=== PATIENT | female | born 1975 | race Caucasian/White ===

== ENCOUNTER 2017-02-13 14:29 | Inpatient (IN) | payer OTHER ==
[~2017-02-13] VITALS: Ht 170.2 cm; Wt 49.9 kg
[2017-02-13] VITALS (14 sets, daily range): BP systolic 116–150; BP diastolic 68–102; PULSE 70–112; RESP 12–19; O2SAT 98–100
--- NOTE | 2017-02-13 07:12 | PCM.HPANE ---
Patient Data Surgeon Admitting Provider: Attending Provider:Thai Figueroa MD Primary Care Physician:Nadir Crews ND Other Provider:Saad Daniels Anesthesia Reason for Visit Jaundice Ht/WT & BMI Body Mass Index Allergies Coded Allergies: No Known Allergies (Unverified , 03/09/16) Past Anesthesia History Anesthesia History: Denies:: Abnormal Airway, Anesthesia Reactions, Difficult Intubation, Fam Anesthesia Reaction, Fam Malignant Hypertherm, Malignant Hyperthermia Diabetes History Hx Diabetes?: No MRSA MRSA: No Medications Reported Medications Prochlorperazine Maleate (Compazine)10 Mg Zebzam03 Mg PO qhrs prn 02/12/17 Ondansetron ODT (Zofran ODT)8 Mg Tablet8 Mg PO q8hrs prn PRN For Nausea 02/12/17 Oxycodone ER (Oxycontin)10 Mg Tab.er.12h10 Mg PO prn 01/21/17 oxyCODONE 5 Mg Tablet5-10 Mg PO Q4H PRN For Pain Ref 0 04/10/16 [Med Cannabis] No Conflict Check Prn 03/27/16 History History of ENT Problems?: No HEENT History: Denies:: Abnormal Airway Difficult Intubation Dysphagia Hearing Problem Hx of Heart Problems?: No Cardiovascular History: Denies:: AICD Atrial Fibrillation Chest Pain Hypertension Pacemaker Valvular Heart Disease Hx of Respiratory Problem?: Yes Respiratory History: Positive for:: Cough (CHRONIC DRY COUGH) Denies:: Asthma COPD Hemoptysis Pneumonia Tuberculosis Hx Neurologic Problems?: No Neurological History: Denies:: CVA Dementia Hx of GI Problems?: Yes Gastrointestinal History: Denies:: Cirrhosis Diverticulitis Gastroesphageal Reflux Hiatal Hernia Rectal Bleeding Hx of Problems?: No Female Hx: Denies:: Currently Skin History: Denies:: History Skin Disorders? Hx Musculoskeletal Problems?: No Musculoskeletal History: Denies:: Joint Replacement Psycho Social History: Denies:: Anxiety Hx Depression Hx Surgeries?: Yes (hemorrhoids, port) Hx Any Other Health Problems?: Yes Other History: Positive for:: Cancer (liver ca- current problem) History Blood Transfusions: Denies:: Blood Transfusions Hx Diabetes: No Hx Alcohol Use: NoHx Substance Use: No Smoking Status: Never Smoker Stop/Bang TAMIKO Risk Assessment: Low Risk, <3 Yes Risk Assessment Category Category 1A: Patient has history of documented sleep apnea, and HAS NOT received any narcotic, sedative or anesthesia administration during this stay. Category 1B: Patient has history of documented sleep apnea, and HAS received any narcotic , sedative or anesthesia administration during this stay Category 2: Patient has SUSPECTED Obstructive Sleep Apnea, and HAS received any narcotic , sedative or anesthesia administration during this stay. Category 3: Patient has SUSPECTED Obstructive Sleep Apnea and HAS NOT received narcotic, sedative or anesthesia administration during this stay. Category 4: Outpatient in Procedural Areas with known sleep apnea or who screen positive for High Risk via the STOP/BANG questionnaire. Exam Exam General Appearance: Alert, Oriented X3, Cooperative, No Acute Distress HEENT/AIRWAY: MP 2 Lungs: Clear to Auscultation, Normal Air Movement Heart: Exam Unremarkable, Regular Rate/Rhythm, No Murmurs/Rubs/Gallops Plan Impression Patient chart reviewed, patient interviewed and anesthestic plan with risks, benefits, and alternatives discussed, and informed consent obtained. NPO Status: clears to 0800 ASA Physical Status: ASA2 Mod Systemic Disease Anesthetic Plan: GA Bene/Risks/Altern/Consents: Yes HP Complete Prior to Induction: Yes Demar Veloz MD Feb 13, 2017 07:12
[~2017-02-13 14:29] MED LIST: 0.9% Sodium Chloride 1,000 ML IV PRN; ONDA8TAB7 PO; OXYC10TA69 PO; OXYC5TAB72 PO; PROC-4 PO; Sodium Chloride LOK Flush 10 mL Syringe IV PRN; [UNRECOGNIZED DRUG - OTHER] PO; fentaNYL-PF 50 mCg/mL 2 mL Inj IVPUSH PRN
[2017-02-13] MEDS ORDERED: Succinylcholine Chloride 20 mg/mL 5 mL Inj ONE (14:44)
[2017-02-13] MEDS ORDERED: Propofol 10,000 mCg/mL 20 mL Inj ONE (14:44)
[2017-02-13] MEDS ORDERED: Ondansetron 2 mg/mL 2 mL Inj ONE (14:44)
[2017-02-13] MEDS ORDERED: Dexamethasone 4 mg/mL Inj ONE (14:44)
[2017-02-13] MEDS ORDERED: fentaNYL-PF 50 mCg/mL 2 mL Inj ONE (14:44)
[2017-02-13 15:43] LABS: INR 1.03 ratio
[2017-02-13] MEDS ORDERED: Lactated Ringer's 500 ML IV PRN (18:14)
--- NOTE | 2017-02-13 18:14 | PCM.ANEP1 ---
Post Anesthesia Phase 1 PACU Phase 1 Assessment Vital Signs Vital Signs Date Time Temp Pulse Resp B/P Pulse Ox O2 Delivery O2 Flow Rate FiO2 02/13/17 15:51 112 19 116/83 98 Room Air Anesthetic Administered: GA Level of Alertness: Awake, talking Pain: No Nausea or Vomiting: No Oxygen Delivery: Simple Mask Lungs: Clear to Auscultation, Normal Air Movement Demar Veloz MD Feb 13, 2017 18:14
[2017-02-13] MEDS ORDERED: Phenylephrine 10,000 mCg/mL Inj IVPUSH PRN (18:15)
[2017-02-13] MEDS ORDERED: Dexamethasone 4 mg/mL Inj IVPUSH PRN (18:15)
[2017-02-13] MEDS ORDERED: Ciprofloxacin Inj 400 MG in IV Premix 1 EACH IV ONE (18:15)
[2017-02-13] MEDS ORDERED: EPHEDrine Sulfate 50 mg/mL Inj IVPUSH PRN (18:15)
[2017-02-13] MEDS ORDERED: MetoCLOpramide 5 mg/mL 2 mL Inj IVPUSH PRN (18:15)
[2017-02-13] MEDS ORDERED: HYDROmorphone 1 mg/mL Inj IVPUSH PRN (18:15)
[2017-02-13] MEDS ORDERED: fentaNYL-PF 50 mCg/mL 2 mL Inj IVPUSH PRN (18:15)
--- NOTE | 2017-02-13 18:19 | PCM.ANEP2 ---
Post Anesthesia Evaluation ASA/CMS Post Anesthesia VS in Patient's Normal Range?: Yes Resp Stable; Airway Patent?: Yes CV Function & Hydration Stable: Yes Mental Status Recovered?: Yes Pain control Satisfactory?: Yes N/V Control Satisfactory?: Yes Demar Veloz MD Feb 13, 2017 18:19
[2017-02-13] MEDS: Lactated Ringer's 1,000 ML IV SCH ×2 (18:29→21:30)
[2017-02-13] MEDS: Ondansetron 2 mg/mL 2 mL Inj IVPUSH PRN ×2 (18:55→20:02)
[2017-02-13] MEDS ORDERED: Alum-Mag Hydrox-Simeth 30 mL Suspension PO PRN (21:20)
[2017-02-13] MEDS ORDERED: Ondansetron 2 mg/mL 2 mL Inj IVPUSH PRN ×2 (21:20→21:25)
[2017-02-13] MEDS ORDERED: HYDROmorphone 0.5 mg/0.5 mL iSecure Syringe IVPUSH PRN (21:20)
[2017-02-13] MEDS ORDERED: HYDROmorphone PCA 0.2 mg/mL 30 mL Inj IV PRN (21:20)
[2017-02-13] MEDS ORDERED: Polyethylene Glycol (PEG) 17 Gm Powder PO PRN (21:20)
--- NOTE | 2017-02-13 21:23 | ENDO ---
[address] [address] ENDOSCOPY PROCEDURE PATIENT: ENDY CARRERA : 1975 MR#: [id number] ADMIT: 02/13/2017 JOB ID: [id number] PROCEDURE: Endoscopic retrograde cholangiopancreatography. INDICATION: Obstructive jaundice. The patient is a 41-year-old woman with a history of metastatic colon cancer who was found to be acutely jaundiced and she underwent imaging which consisted of an MRI and MRCP which showed a common hepatic duct stricture with upstream dilation. Her lab tests indicated that her bilirubin is approximately 10 and indirect was approximately 9 and therefore the patient was referred to me for ERCP with possible stent placement for relief of biliary obstruction. INSTRUMENT USED: Revolymer Q180 V. MEDICATIONS: General anesthesia. Please see their report for details. PROCEDURE DETAILS: After informed consent was obtained, the patient was brought into the GI suite, where she was placed under general anesthesia and then placed in the standard ERCP position. Activities Concierge films revealed what appeared to be coils in the area of the right upper quadrant. Using an Olympus CleverCut tome, we initially gained access into the pancreatic duct. No dye was injected, however, the wire was passed. The wire in the pancreatic duct was left and then we attempted to gain access into the biliary system. However, after two unsuccessful attempts at cannulating the biliary duct and repeated entry into the pancreatic duct, we then changed the tome to a [employer] Autotome 7-Solomon Islander. With this, we were then able to gain access into the biliary system under wire guidance. Initial cholangiogram demonstrated a normal-appearing common bile duct. The cystic duct was partially filled. Just above the cystic duct, in the common hepatic duct, there was an abrupt cutoff. I did not attempt to inject large amounts of contrast for concerns cholangitis. Therefore, using wire guidance, I attempted to pass the wire beyond the obstruction. This was unsuccessful with the standard Jagwire. Then, using an angled wire, we were able to gain access into what appeared to be the left hepatic duct. This was confirmed after we injected a small amount of contrast. I was able to appreciate a stricture in the proximal portion of the common hepatic duct. This stricture measured approximately 2 cm in length. Next,A small sphincterotomy was performed. I elected to place place a 7-Solomon Islander 10 cm biliary stent. However, as we introduced the stent, we met resistance in the common hepatic duct at the site of the obstruction. At this point, the stent was then withdrawn and a 6 mm biliary balloon was introduced into the bile duct. We attempted to advance the balloon catheter beyond the point of obstruction, however, this was unsuccessful as we met resistance. At this point, the procedure was aborted. IMPRESSION: Stricture in the proximal portion of the common hepatic duct. Unsuccessful in placing a biliary stent to decompress the biliary system. RECOMMENDATIONS: Start IV antibiotics to prevent cholangitis. Will consult Interventional Radiology to see if percutaneous drainage can be performed. Discharge home with Cipro for 5 days. COMPLICATIONS: Immediately none. ESTIMATED BLOOD LOSS: Zero. MTDD
[2017-02-13] MEDS ORDERED: HYDROmorphone 1 mg/mL Inj IVPUSH ONE ×2 (21:25→22:15)
[2017-02-13] MEDS: MetoCLOpramide 5 mg/mL 2 mL Inj IVPUSH PRN (21:37)
[2017-02-13] MEDS: 0.9% Sodium Chloride 1,000 ML IV SCH (21:38)
[2017-02-13 21:59] LABS: BASOPHILS % (AUTO) 0 % (0-3); EOSINOPHILS % (AUTO) 0.2 % (0-5); MONOCYTES % (AUTO) 7.4 % (4-12); Mean Corpuscular Hemoglobin 26.8 pg (27.0-35.0); Mean Corpuscular Volume 84.3 fL (81-100); NEUTROPHILS % (AUTO) 85.2 % (40-74); Platelet Count 187 bil/L (150-400)
--- NOTE | 2017-02-13 22:45 | PCM.HPMED ---
Subjective Date of Service Feb 13, 2017 Primary Provider: Admitting Physician: Thai Figueroa MD Primary Care Physician: Nadir Crews ND Attending Physician: Thai Figueroa MD Admit Status: From the Emergency Department, Non-Telemetry Chief Complaint: Obstructive jaundice History of Present Illness: Ms. 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 When the patient saw her oncologist, Dr. Alejandre, on 02/12/17, she was found to have dramatic deterioration of liver function and hyperbilirubinemia at 10.2 (from 1.3). Subsequent CT abdomen with liver protocol and MRCP showed some biliary stenosis, either due to a lesion or stricture at just below the confluence of the right and left hepatic ducts. The common bile duct and gallbladder were nondistended, but there was intrahepatic biliary dilation due to this stenosis. Dr. Figueroa of GI was consulted and performed an ERCP today 02/13/17. A stricture in the proximal portion of the common hepatic duct was found but GI was unable to place a biliary stent to decompress the biliary system. Dr. Ramos recommended to consult interventional radiology to see if percutaneous drainage can be done in the morning. Of note, patient was previously healthy with no medical issue until July 2015, when she presented with severe fatigue and weight loss. She was found to have metastatic colon cancer to the liver s/o resection of the primary tumor in the sigmoid and bilateral hepatic artery radioembolization at [facility] to both lobes of the liver in 2015. She has been follow up with Dr. Alejandre for chemotherapy every since. Her last chemo session was about 4 weeks ago. She has been taking Oxycotin 10mg BID and Oxycodone 5mg Q4H for pain control. At the time of admission, patient is seen with her by the bedside, appearing very uncomfortable and fatigue. Patient complains of extreme nausea and RUQ pain that radiates to the back. The pain has been constant and has not changed after the ERCP. She has been losing a lot of weight due to the pain, nausea, and no appetite. She denies any headache, CP, SOB, urinary issues, constipation, fever, or chills. Patient was admitted to the hospital for pain control and awaiting possible percutaneous drainage in the morning. Review of Systems: A comprehensive review of systems was conducted with the patient and found to be negative except as above in the History of Present Illness. Allergies Coded Allergies: No Known Allergies (Unverified , 03/09/16) Home Medications Oxycontin 10mg 1 tab BID Oxycodone 5mg 1 tab Q4H PMH Metastatic colon cancer to the liver Migraine Surgical History Resection of the primary tumor in the sigmoid Bilateral hepatic artery radioembolization at [facility] to both lobes of the liver Family History No history of colon cancers in her immediate family. Maternal great aunt of colon cancer in her 40s. Maternal grandmother had breast cancer in her 70s, and a paternal cousin had also breast cancer. Social History Hx Alcohol Use: No Hx Substance Use: No Smoking Status: Never Smoker Additional Information Patient lives in [place], [place], with her and one 5-yo daughter. She is a high school french teacher. She has no history of smoking or alcoholism Exam Vital Signs Vital Sign - Last Date Time Temp Pulse Resp B/P Pulse Ox O2 Delivery O2 Flow Rate FiO2 02/13/17 21:35 36.7 81 16 147/97 98 Room Air 02/13/17 18:10 8 Exam General: Appears uncomfortable, ill appearance, thin, mal-nourished, appropriately interactive HEENT: Normocephalic, atraumatic. External ears without defect. Pupils equal, round, and reactive to light and accommodation. Scleral icterus, moist conjunctivae, and no lid lag. Oropharynx free of erythema and cobble stoning with dry mucosa. Lower lip with mild swelling. Neck: Supple with full range of motion. No jugular venous distension. No bruits. No lymphadenopathy or thyromegaly. Cardiovascular: Regular rate and rhythm with no murmurs, rubs, or gallops appreciated Pulmonary: Clear to auscultation bilaterally with no crackles, wheezes, or rhonchi. Normal respiratory effort with no use of accessory muscles. Abdomen: Bowel tones present. Soft, nondistended. Generalized tenderness to palpation, worst at the RUQ. No hepatosplenomegaly palpated. Extremities: No clubbing, cyanosis, edema, or lymphadenopathy appreciated. Skin: Significant jaundice. Normal temperature, turgor, and texture; no rash, ulcers, or subcutaneous nodules appreciated. Neurological: Cranial nerves grossly intact. Normal muscle strength, tone, and bulk. Reflexes, coordination, and sensory function within normal limits. No known gait impairment. Lymphatic: no cervical or supraclavicular lymphadenopathy noted Psychiatric: Normal mood and affect. Alert and oriented to person, place, and time. 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 intractable pain, acute -secondary to metastatic colon cancer and common bile duct obstruction -fentanyl given prior to admission not effective -hydromorphone coat feller, opiate naive d/t liver dysfunction intractable nausea, acute -post procedure a/w medications and pain ' -ondansetron IV prn, reglan IV prn 1. Obstructive jaundice, acute, present on admission, active. - ERCP was done today, confirming the obstruction just above the cystic duct and hepatic duct. - Unsuccessful attempts to advance beyond the obstruction. A small sphincterotomy was performed after we cannulated the bile duct. - Per GI, will consult interventional radiology tomorrow for a percutaneous drainage. - NPO for the procedure tomorrow. - IVF with NS at 100mls/hr. - IV Zofran PRN nausea. - Patient received a dose of Cipro IV after the ERCP today. Will start empiric therapy for possible cholangitis with Zosyn IV. - Monitor vital signs, labs, and clinical symptoms closely for infection and pancreatitis. 2. Metastatic colon cancer to the liver, chronic, active. - Follow up with oncology as outpatient. - Pain management with Dilaudid FINANCIAL MANAGEMENT CONSULTANT in the hospital. Hold home pain medications. - Avoid hepatotoxic drugs like APAP. - Consider alternative feeding route if patient continues to have poor PO intake. - Pawn Shop Keeper consult in the morning. normocytic anemia, chronicity unknown -likely a/w chronic disease -continue to monitor with am labs Code status: FULL code. However, patient does not wish to be on life support. No pharmacological DVT prophylaxis given possible procedure in the morning. Will have pneumatic pump. Patient is admitted under inpatient status with expected length of stay greater than 2 midnights due to severity of presenting symptoms, risk of adverse event, and complexity of treatment plan. Pain Evaluation: Adequate Pain Control GI Prophylaxis: H2 loren VTE Prophylaxis: SCDs VTE Mechanical Devices: Intermittant Pneumatic CD Resuscitation Status: CPR: Attempt Resuscitation Attending Statement The patient was seen and examined together with house staff on 02/13/2017 and I agree with the history, exam and plan as outlined in the note above. Lisa Garcia DO Feb 13, 2017 22:45 Sangeeta Churchill DO Feb 14, 2017 02:39
[2017-02-14] MEDS: Piperacillin-Tazo 3.375 Gm Inj 3.375 GM in Dextrose 5% Minibag Plus 50 ML IV SCH ×2 (00:15→08:43)
[2017-02-14 05:19] VITALS: BP 120/76; PULSE 66; RESP 16; O2SAT 99
[2017-02-14 05:32] LABS: BASOPHILS % (AUTO) 0.3 % (0-3); EOSINOPHILS % (AUTO) 0 % (0-5); MONOCYTES % (AUTO) 8.4 % (4-12); Platelet Count 169 bil/L (150-400)
[2017-02-14 06:12] VITALS: RESP 18; O2SAT 99
--- NOTE | 2017-02-14 06:20 | NUR ---
Admit/pain Pt arrived from [facility] around 2114, A&O, with significant abdominal pain at 06/26. IV Dilaudid 4 mg given and pt placed on STERILE SUPERVISOR Dilaudid. Pain was at first well controlled but came back over night since pt hesitant to use STERILE SUPERVISOR, only used 1.8mg all shift. Encouraged pt to uses STERILE SUPERVISOR more frequently while awake to maintain better pain control. Pt understands and will do so.
[2017-02-14] MEDS: 0.9% Sodium Chloride 1,000 ML IV SCH (07:59)
[2017-02-14 08:20] VITALS: RESP 16; O2SAT 99
[2017-02-14] MEDS ORDERED: Famotidine Inj 20 MG in IV Premix 1 EACH IV SCH (08:30)
[2017-02-14] MEDS ORDERED: herbal PO (08:38)
--- NOTE | 2017-02-14 09:14 | DRSVH ---
PROCEDURE: X-RAY E.R.C. BILIARY DUCTS ([id number]) INDICATIONS: JAUNDICE TECHNIQUE: Fluoroscopic spot films were acquired by the gastroenterology service during ERCP procedu re. COMPARISON: None. FINDINGS: Examination is limited to to submitted images. Within these limits, guidewire has been andre nahum through the extrahepatic bile duct with partial opacification of the bile ducts which demonstrate no gross dilatation or definite intraluminal filling defect. No extravasation of contrast media. IMPRESSION: Very limited examination demonstrating placement of a guidewire with partial opacificatio n of the bile ducts which appear grossly nondistended. Correlate with real time examination. Dictated by: Shay ESPAÑA Interpreted: Vivien Pardo MD on 02/14/2017 at 9:12 Transcribed by: KEENAN on 02/14/2017 at 9:14 Approved by: Vivien Pardo MD, PhD on 02/14/2017 at 16:35
[2017-02-14] MEDS: MetoCLOpramide 5 mg/mL 2 mL Inj IVPUSH PRN (09:29)
--- NOTE | 2017-02-14 11:34 | NUR ---
Social Work: Screening Data: Pt is a 41 y/o female admitted for jaundice. Pt's PCP is Dr Crews, pt's isnurance is [employer]. EMR reviewed. No d/c planning anticipated at this time. AUDIOLOGY DOCTOR will continue to follow if needs arise. Assessment: Pt who is independent at baseline. Plan: Pt will d/c home via POV when medically stable. No d/c planning anticipated at this time. AUDIOLOGY DOCTOR will continue to follow if needs arise. GORGE Sher
[2017-02-14 12:20] VITALS: RESP 16; O2SAT 99
[2017-02-14] MEDS ORDERED: CIPR-231 PO (13:57)
--- NOTE | 2017-02-14 14:00 | PCM.DIMED ---
Discharge Instructions Date of Service Feb 14, 2017 Dates of Hospitalization Feb 13, 2017 at 21:18 Discharge Diagnosis Discharge Diagnosis 1. Obstructive jaundice, acute, present on admission, active. 2. Metastatic colon cancer to the liver, chronic, active. 3. Normocytic anemia, chronicity unknown. stable Diet No restrictions Activity No restrictions Call your provider Fever or Chills, Shortness of breath, Bleeding, Chest pain, Vomitting, Excessive diarrhea Patient Instructions Seek immediate medical attention if any new or worsening signs or symptoms occur. Follow-up plan 1. Followup with gastroenterology early next week as setup 2. Followup with oncology (Dr. Alejandre) as previously scheduled. 3. Followup with primary care provider in 1-2 weeks. Follow-up Provider: Francis Daley MD Provider: Nadir Crews ND, Masoud Feb 14, 2017 14:00
--- NOTE | 2017-02-14 14:32 | NUR ---
Social Work: Discharge Data: Pt is on day 1 of hospitalization. EMR reviewed. D/C orders are in. No d/c planning needs. COTTON EXPERT will continue to follow if needs arise. Assessment: Pt who is independent at baseline. Plan: Pt will d/c home via POV today. No d/c planning needs. COTTON EXPERT will continue to follow if needs arise. GORGE Sher
--- NOTE | 2017-02-14 14:40 | NUR ---
Discharge Pt discharged home with family via private vehicle. Pt alert and oriented, no c/o of pain or discomfort, Port-a-cath de-accessed by IV therapy, home meds retrieved from pharmacy. Pt verbalized understanding of discharge and Rx instructions, personal belongings accounted for and left with pt.
[2017-02-14 14:44] VITALS: RESP 16; O2SAT 98
--- NOTE | 2017-02-14 18:10 | CCS NOTE ---
[facility] [address] [address] MEDICAL ONCOLOGY OFFICE NOTE PATIENT: ENDY CARRERA : 1975 MR#: [id number] DATE: 02/13/2017 JOB ID: [id number] DATE: 02/14/2017 HISTORY OF PRESENT ILLNESS: This patient is a 41-year-old lady, who was seen last in our clinic on February 12 with her metastatic colon cancer and acute onset of hyperbilirubinemia within a week that ended up being an obstructive jaundice phenomena at the level of the confluence of the right and left hepatic duct. For details, please refer to my note of February 12, 2017. I had spoken with Dr. Figueroa and he kindly arranged for urgent ERCP the following day, yesterday, February 13. The patient's bilirubin had gone from 0.7 to 1.3 within one week and then from 1.3 to 10.3 in the following week between February 04 and February 12. The ERCP showed a stricture in the proximal portion of the common hepatic duct. He was not able to pass the wire beyond the obstruction at this level, initially. With an angled wire, he was able to gain access to the left hepatic duct over a length of 2.5 cm in the proximal portion of the common hepatic duct. A 6 mm biliary balloon was introduced in the bile duct in attempt to advance the catheter; however, this was unsuccessful due to significant resistance. The patient was then admitted for consultation with Interventional Radiology to consider a percutaneous biliary drain as an alternative for palliative reasons. This morning, seeing the patient at bedside, she appears actually better. Her bilirubin has come down in 24 hours from 10 to 7.0 last night, within just a few hours of the procedure, and this morning it is 4.5, suggesting that the manipulations had caused some effect of dilation and at least partial biliary drainage. She has remained afebrile. She is post ERCP on ciprofloxacin. On exam, her condition is stable, without any new abnormalities. Jaundice is still present. LABORATORY STUDIES: Showed an AST, ALT only minimally elevated in the 50s. Albumin 2.8. ASSESSMENT: A 41-year-old, unfortunate lady with metastatic sigmoid colon cancer with a dramatic degree of bilateral liver metastases at presentation 1-1/2 years ago. She has been receiving chemotherapy and has come down with an acute obstructive biliary jaundice. For details, please refer to my note of February 12. Unfortunately, the ERCP yesterday faced a very tight stricture at the proximal portion of the common hepatic duct that was not able to be canalized and stented. The patient was being scheduled for a percutaneous biliary drain. I spoke both with Dr. Figueroa this morning, as well as with Dr. Alfaro of Interventional Radiology. I also spoke with Dr. Amadou Rosales with Gastroenterology at [facility]. Given the fact that the patient's bilirubin has come down by 50% overnight suggests that the manipulations by Dr. Figueroa were partially successful to drain some of the bile congestion. Therefore, I do not see an urgency for a percutaneous drain which has quite a bit of morbidity and issues of quality of life and risk of infection. We cancelled the percutaneous drain placement and sent electronically images of MRCP and the cholangiogram of ERCP electronically to Dr. Rosales at [facility] for review, and he agreed to consider a repeat attempt at ERCP and stenting, if possible. This is being scheduled for early next week on Friday and appropriate referral has been sent. The patient is very much interested to do that and Dr. Figueroa is also agreeable. I also spoke with Dr. Lorenzo of the hospitalist team. Approximately 1 hour and 15 minutes were spent in counseling and coordination of care.
--- NOTE | 2017-02-14 18:10 | PCM.DC.MED ---
Discharge Summary Date of Service Feb 14, 2017 Dates of Hospitalization Date of Hospital Admission Feb 13, 2017 at 21:18 Date of Discharge: Feb 14, 2017 Providers: Admitting Physician: Thai Figueroa MD Primary Care Physician: Nadir Crews ND Attending Physician: Thai Figueroa MD Diagnosis at Time of Discharge Diagnosis at Time of Discharge 1. Obstructive jaundice, acute, present on admission, active. 2. Metastatic colon cancer to the liver, chronic, active. 3. Normocytic anemia, chronicity unknown. stable Consultations 1. GI 2. Oncology Procedures Other Diagnostics Date of Service: 02/13/17 7002 PROCEDURE: X-RAY E.R.C. BILIARY DUCTS ([id number]) IMPRESSION: Very limited examination demonstrating placement of a guidewire with partial opacification of the bile ducts which appear grossly nondistended. Correlate with real time examination. Dictated by: Shay Ryan RRRachel Interpreted: Vivien Pardo MD on 02/14/2017 at 9:12 Transcribed by: KEENAN on 02/14/2017 at 9:14 Approved by: Vivien Pardo MD, PhD on 02/14/2017 at 16:35 Brief History As noted in H&P by Dr. Garcia: Ms. 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 When the patient saw her oncologist, Dr. Alejandre, on 02/12/17, she was found to have dramatic deterioration of liver function and hyperbilirubinemia at 10.2 (from 1.3). Subsequent CT abdomen with liver protocol and MRCP showed some biliary stenosis, either due to a lesion or stricture at just below the confluence of the right and left hepatic ducts. The common bile duct and gallbladder were nondistended, but there was intrahepatic biliary dilation due to this stenosis. Dr. Figueroa of GI was consulted and performed an ERCP today 02/13/17. A stricture in the proximal portion of the common hepatic duct was found but GI was unable to place a biliary stent to decompress the biliary system. Dr. Ramos recommended to consult interventional radiology to see if percutaneous drainage can be done in the morning. Of note, patient was previously healthy with no medical issue until July 2015, when she presented with severe fatigue and weight loss. She was found to have metastatic colon cancer to the liver s/o resection of the primary tumor in the sigmoid and bilateral hepatic artery radioembolization at [facility] to both lobes of the liver in 2015. She has been follow up with Dr. Alejandre for chemotherapy every since. Her last chemo session was about 4 weeks ago. She has been taking Oxycotin 10mg BID and Oxycodone 5mg Q4H for pain control. At the time of admission, patient is seen with her by the bedside, appearing very uncomfortable and fatigue. Patient complains of extreme nausea and RUQ pain that radiates to the back. The pain has been constant and has not changed after the ERCP. She has been losing a lot of weight due to the pain, nausea, and no appetite. She denies any headache, CP, SOB, urinary issues, constipation, fever, or chills. Patient was admitted to the hospital for pain control and awaiting possible percutaneous drainage in the morning. Hospital Course patient was admitted for consideration of interventional radiology for a percutaneous drainage. However, Dr. Alejandre (oncology) reviewed patient's case with GI specialist in [facility] (Dr. Amadou Rosales) and the tentetive plan is now for another ERCP attempt and thus percutaneous drain placement has been cancelled now. patient is tolerating some PO diet and requesting d/c home. She has been scheduled for f/u w/ GI this coming Friday. by day of d/c lungs CTA bilat. abdomen is soft, nd, +bs Exam Vital Signs (Last) Date Time Temp Pulse Resp B/P Pulse Ox O2 Delivery O2 Flow Rate FiO2 02/14/17 14:44 16 98 02/14/17 05:19 35.7 66 120/76 Room Air 02/13/17 18:10 8 Test 02/13/17 15:20 02/14/17 05:20 Prothrombin Time 11.0sec (8.1-12.5) Prothromb Time International Ratio 1.03ratio White Blood Count 3.2th/mm3 (3.8-10.1) Red Blood Count 3.67mil/mm3 (3.90-5.20) Hemoglobin 9.9g/dL (12.0-15.6) Hematocrit 31.2% (35.0-46.0) Mean Corpuscular Volume 85.0fL (81-100) Mean Corpuscular Hemoglobin 27.0pg (27.0-35.0) Mean Corpuscular Hemoglobin Concent 31.7% (32.0-37.0) Red Cell Distribution Width 18.7% (12.3-15.4) Platelet Count 169bil/L (150-400) Neutrophils (%) (Auto) 81.0% (40-74) Lymphocytes (%) (Auto) 10.0% (14-46) Monocytes (%) (Auto) 8.4% (4-12) Eosinophils (%) (Auto) 0% (0-5) Basophils (%) (Auto) 0.3% (0-3) Sodium Level 135mEq/L (134-144) Potassium Level 4.4mEq/L (3.5-5.2) Chloride Level 100mEq/L (97-108) Carbon Dioxide Level 21mmol/L (18-29) Blood Urea Nitrogen 12mg/dL (6-24) Creatinine 0.30mg/dL (0.57-1.00) Estimat Glomerular Filtration Rate 351mL/min (>59) Glucose Level 147mg/dL (60-99) Lactic Acid Level 0.9mmol/L (0.4-2.0) Calcium Level 8.6mg/dL (8.5-10.1) Total Bilirubin 4.5mg/dL (0.0-1.2) Aspartate Amino Transf (AST/SGOT) 58U/L (0-50) Alanine Aminotransferase (ALT/SGPT) 33U/L (0-32) Alkaline Phosphatase 427U/L (25-150) Total Protein 5.6g/dL (6.4-8.4) Albumin 2.8g/dL (3.4-5.0) Lipase 40U/L (13-60) Discharge Medications Discharge Medications Ciprofloxacin (Cipro) 500 Mg Tablet 500 MG PO BID Prescribed by: LITO CASTRO MD Oxycodone ER (Oxycontin) 10 Mg Tab.er.12h 10 MG PO prn (Reported) Prochlorperazine Maleate (Compazine) 10 Mg Tablet 10 MG PO qhrs prn (Reported) As needed ([Med Cannabis]) 20 MG PO TID PRN PRN For Nausea (Reported) ([herbal]) Unknown Dose PO BID PRN PRN For Nausea (Reported) Ondansetron ODT (Zofran ODT) 8 Mg Tablet 8 MG PO q8hrs prn PRN PRN For Nausea ( Reported) oxyCODONE (oxyCODONE) 5 Mg Tablet 5-10 MG PO Q4H PRN PRN For Pain (Reported) Followup Plan Disposition: Home Follow-up plan 1. Followup with gastroenterology early next week as setup 2. Followup with oncology (Dr. Alejandre) as previously scheduled. 3. Followup with primary care provider in 1-2 weeks. Discharge Diet: No restrictions Discharge Activity: No restrictions Patient Instructions Seek immediate medical attention if any new or worsening signs or symptoms occur. Follow-up Provider: Francis Daley MD Provider: Nadir Crews ND Time spent 35 min copies to: Nadir Crews ND; Francis Daley MD, Masoud Feb 14, 2017 18:10
== END 2017-02-14 14:45 | disposition home or self-care (01) | DRG 445 ==
LOC: END 14:29 → MPC 21:18 → OBSVTOIN 21:18
PROVIDERS: ADMIT Internal Medicine Gastroenterology; ATTEND Internal Medicine Gastroenterology
PROC: 0FJB8ZZ Inspection of Hepatobiliary Duct, Via Natural or Artificial Opening Endoscopic (ICD-10-PCS; principal; 2017-02-13 15:15)
DX: K83.1 Obstruction of bile duct (principal); C78.7 Secondary malignant neoplasm of liver and intrahepatic bile duct; D64.9 Anemia, unspecified